=== PATIENT | male | born 1960 | race Caucasian/White ===

== ENCOUNTER 2019-02-08 16:07 | Emergency (ER) | payer OTHER ==
[~2019-02-08] VITALS: Ht 195.6 cm; Wt 128.3 kg
[2019-02-08 16:25] VITALS: Ht 195.6 cm; Wt 128.3 kg
--- NOTE | 2019-02-08 16:38 | ERD ---
ER Documentation Chief Complaint Chief Complaint L upper CP radiating to L axilla, SOB X 1 day. HPI This is a 58-year-old male who presents for evaluation of left upper chest pain, rating to the left axilla, associated with intermittent shortness of breath. The shortness of breath is not exertional, and is mainly inspirational. He denies any abdominal pain, he has not had any nausea or vomiting. He has not had a fever, no hemoptysis, no recent travel, no leg swelling. He is a smoker. Symptoms are intermittent. ROS All systems reviewed and are negative except as per history of present illness. Medications Home Meds Reported Medications Metoprolol Succinate* (Toprol XL*) 50 Mg Tab.er.24h, 50 MG PO DAILY, #30 TAB 02/08/19 Allergies Allergies: Coded Allergies: Penicillins (Unverified Allergy, Unknown, 02/08/19) acetaminophen (Verified Allergy, Unknown, 02/08/19) morphine (Unverified Allergy, Unknown, 02/08/19) Physical Exam Vitals Vital Signs Date Temp Pulse Resp B/P (MAP) Pulse Ox O2 O2 Flow FiO2 Time Delivery Rate 02/08/19 59 18 106/84 97 Room Air 19:19 (91) 02/08/19 97.9 66 18 130/64 95 16:25 (86) Physical Exam Const: Well-appearing, well-nourished, in no acute distress Head: Atraumatic Eyes: Normal Conjunctiva ENT: Normal External Ears, Nose and Mouth. Neck: Full range of motion. No meningismus. Resp: Clear to auscultation bilaterally, no wheezing rales or rhonchi Cardio: Regular rate and rhythm, no murmurs. This point tenderness over the left chest wall Abd: Soft, non tender, non distended, negative Zuniga sign, negative McBurney's point tenderness, no rebound or guarding. Normal bowel sounds Skin: No petechiae or rashes Back: No midline or flank tenderness Ext: No cyanosis, or edema Neur: Awake and alert Psych: Normal Mood and Affect Result Diagram: 02/08/19 1653 02/08/19 1653 Results 24 hrs Laboratory Tests Test 02/08/19 16:53 02/08/19 19:54 White Blood Count 5.5 10^3/ul Red Blood Count 4.92 10^6/ul Hemoglobin 15.4 g/dl Hematocrit 45.1 % Mean Corpuscular Volume 91.7 fl Mean Corpuscular Hemoglobin 31.3 pg Mean Corpuscular Hemoglobin Concent 34.1 g/dl Red Cell Distribution Width 13.2 % Platelet Count 136 10^3/UL Mean Platelet Volume 9.3 fl Immature Granulocytes % 0.200 % Neutrophils % 57.9 % Lymphocytes % 28.2 % Monocytes % 10.8 % Eosinophils % 2.0 % Basophils % 0.9 % Nucleated Red Blood Cells % 0.0 /100WBC Immature Granulocytes # 0.010 10^3/ul Neutrophils # 3.2 10^3/ul Lymphocytes # 1.5 10^3/ul Monocytes # 0.6 10^3/ul Eosinophils # 0.1 10^3/ul Basophils # 0.1 10^3/ul Nucleated Red Blood Cells # 0.0 10^3/ul Sodium Level 139 mmol/L Potassium Level 4.3 mmol/L Chloride Level 106 mmol/L Carbon Dioxide Level 26 mmol/L Anion Gap 7 Blood Urea Nitrogen 22 mg/dl Creatinine 0.93 mg/dl Est Glomerular Filtrat Rate mL/min > 60 mL/min Glucose Level 165 mg/dl Calcium Level 9.1 mg/dl Total Bilirubin 0.5 mg/dl Direct Bilirubin 0.00 mg/dl Indirect Bilirubin 0.5 mg/dl Aspartate Amino Transf (AST/SGOT) 346 IU/L Alanine Aminotransferase (ALT/SGPT) 371 IU/L Alkaline Phosphatase 128 IU/L Troponin I < 0.012 ng/ml < 0.012 ng/ml B-Type Natriuretic Peptide 207 PG/ML Total Protein 6.7 g/dl Albumin 3.6 g/dl Globulin 3.10 g/dl Albumin/Globulin Ratio 1.16 Current Medications Medications Dose Sig/Trupti Start Time Status Last (Trade) Ordered Route PRN Stop Time Admin Dose Reason Admin Ondansetron 4 mg ONCE STAT 02/08/19 DC 02/08/19 HCl (Zofran IV 19:18 20:21 Inj) 02/08/19 20:10 Ondansetron 4 mg ONCE STAT 02/08/19 DC HCl (Zofran IV 19:18 Inj) 02/08/19 20:10 Ketamine 38 mg ONCE STAT 02/08/19 DC 02/08/19 HCl IV 19:18 20:20 (Ketamine 02/08/19 20:10 HCl) IV Flush 10 ml STK-MED 02/08/19 DC 02/08/19 (NS 10 ml) ONCE .ROUTE 19:34 20:30 02/08/19 19:35 Sodium 100 ml @ ud STK-MED 02/08/19 DC 02/08/19 Chloride ONCE .ROUTE 19:34 20:30 02/08/19 19:35 Iohexol 100 ml @ ud STK-MED 02/08/19 DC 02/08/19 ONCE .ROUTE 19:34 20:30 02/08/19 19:35 Procedures/MDM 58-year-old male presents for evaluation of chest pain. Primary concern concern is for acute coronary syndrome, EKG showing no evidence of acute ischemia, cardiac work-up ordered for patient. Patient is low to intermediate risk, he has a history of coronary disease, but he does have a history of hypertension, and tobacco use. His troponin was negative x2. I discussed admission with the patient, and I also discussed the case with [facility], the patient stated that he did not want to be admitted, and could follow-up with his PMD within 5 days, strict return cautions were given for any worsening chest pain, or any other symptoms. Additionally there is consideration for holy embolism, as well as dissection, see CTA below. EKG: Rate/Rhythm: Normal Sinus Rhythm QRS, ST, T-waves: No changes consistent w/ acute ischemia Impression: No evidence of ischemia or arrhythmia 9:30 PM: CT scan did not show any evidence of pulmonary embolism, did note a 9 mm nodule, discussed with patient, he will need a follow-up CT scan in [address] scan did not show any acute findings, I we discussed return precautions with patient, who again was very adamant that he wanted to go home, at discharge the patient was in no distress. Departure Diagnosis: Primary Impression: Chest pain Chest pain type: unspecified Qualified Codes: R07.9 - Chest pain, unspeci fied Additional Impression: Lung nodule JOANNA SELBY MD Feb 08, 2019 16:38
[2019-02-08] MEDS ORDERED: METO-319 PO (17:42)
[2019-02-08] MEDS ORDERED: KETAMINE HCL (50 MG/ML) 1ml syringe IV STA (19:18)
[2019-02-08] MEDS ORDERED: ONDANSETRON 4 MG INJ IV STA ×2 (19:18)
[2019-02-08] MEDS ORDERED: IOHEXOL 100 ML ONE (19:34)
[2019-02-08] MEDS ORDERED: SOD CHLORIDE 0.9% 100 ML ONE (19:34)
[2019-02-08 22:00] VITALS: BP 121/88; PULSE 62; RESP 20
== END 2019-02-08 22:20 | disposition home or self-care (01) ==
LOC: E/R 16:07
DX: R07.9 Chest pain, unspecified (principal); R91.1 Solitary pulmonary nodule
CPT/HCPCS: 71045; 71275; 74176; 80053; 83880; 84484; 85025; 93005; 96374; 96375; J2405; Q9967; Z7502; Z7610

== ENCOUNTER 2019-03-26 19:01 | Emergency (ER) | payer SELFPAY ==
[~2019-03-26] VITALS: Ht 195.6 cm; Wt 129.4 kg
[~2019-03-26 19:01] MED LIST: METO-319 PO
[2019-03-26 19:08] VITALS: BP 149/91; PULSE 76; RESP 18; Ht 195.6 cm; Wt 129.4 kg
== END 2019-03-26 21:53 | disposition left against medical advice (07) ==
LOC: E/R 19:01
DX: Z53.21 Procedure and treatment not carried out due to patient leaving prior to being seen by health care provider (principal)